=== PATIENT | female | born 1955 | race Caucasian/White ===

== ENCOUNTER 2021-04-01 05:52 | Day surgery (SDC) | payer OTHER ==
[2021-04-01] MEDS ORDERED: Lactated Ringers 1,000 ML IV SCH (06:30)
[2021-04-01] MEDS ORDERED: DIPRIVAN 200 MG/20 ML IV ONE ×2 (07:52→08:13)
[2021-04-01] MEDS ORDERED: Lactated Ringers 1,000 ML IV ONE (08:25)
[2021-04-01 10:23] VITALS: PULSE 84; O2SAT 97
[2021-04-01 10:24] VITALS: BP 137/62
--- NOTE | 2021-04-01 15:03 | OP ---
SURGERY DATE/TIME: 04/01/2021 0805 PREOPERATIVE DIAGNOSIS: Left lower quadrant abdominal pain. POSTOPERATIVE DIAGNOSIS: Mild sigmoid diverticulosis otherwise normal colon. PROCEDURE: Colonoscopy. SURGEON: Dr. Bob. ANESTHESIA: MAC. Medications given by anesthesia department. HISTORY: The patient is a 66 year-old white female presenting with left lower quadrant abdominal pain for the past six weeks. She had a CT scan showing diverticulosis but otherwise was normal. The patient has never had a colonoscopy before. She was appraised of the risks of the procedure including the risk of perforation, phlebitis, untoward reaction to medication, bleeding and missed lesions. The patient verbalized her understanding and desired to have the procedure performed. DESCRIPTION OF PROCEDURE: The patient was given the medications by the anesthesia department. She had continuous pulse oximetry, ECG monitoring, intermittent blood pressure monitoring and tidal CO2 monitoring during the examination. She is placed in the left lateral decubitus position. A digital rectal examination was performed and revealed normal anal sphincter tone and no masses. The flexible Olympus pediatric colonoscope was used to intubate the rectum. A view of the colon was developed sequentially to the cecum. Upon insertion and withdrawal, including a retroflex view in the rectum was noted mild sigmoid diverticulosis otherwise normal colon. The colon was noted to be tortuous however in the lower quadrants. The patient was taken back to the recovery room in good condition. The prep was noted to be fair to good.
== END 2021-04-01 09:40 | disposition home or self-care (01) ==
LOC: SDC 05:52
PROVIDERS: ATTEND Family Medicine
DX: K57.30 Diverticulosis of large intestine without perforation or abscess without bleeding (principal); R10.32 Left lower quadrant pain; Z79.899 Other long term (current) drug therapy
CPT/HCPCS: J2704